=== PATIENT | female | born 2005 | race Caucasian/White ===

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

== ENCOUNTER 2025-04-04 10:47 | Emergency (ER) | payer BC ==
[2025-04-04 11:36] LABS: BASOPHILS ABSOLUTE AUTO 0.1 K/mm3 (0.0-0.2); BASOPHILS PERCENT AUTO 1.3 % (0.0-1.0); EOSINOPHILS ABSOLUTE AUTO 0.5 K/mm3 (0.0-0.4); EOSINOPHILS PERCENT AUTO 5.9 % (0.0-6.0); IMMATURE GRAN ABSOLUTE AUTO 0.01 K/mm3 (0.00-0.05); IMMATURE GRAN PERCENT AUTO 0.1 % (0.0-0.4); LYMPHOCYTES ABSOLUTE AUTO 2.1 K/mm3 (1.0-4.8); LYMPHOCYTES PERCENT AUTO 25.9 % (24.0-44.0); MEAN PLATELET VOLUME 10.3 fl (9.4-12.3); MONOCYTES ABSOLUTE AUTO 0.5 K/mm3 (0.0-0.8); MONOCYTES PERCENT AUTO 6.6 % (0.0-8.0); NEUTROPHILS ABSOLUTE AUTO 4.8 K/mm3 (1.8-7.7); NEUTROPHILS PERCENT AUTO 60.2 % (41.0-71.0); NRBC ABSOLUTE 0.00 (0.00-0.02); NRBC PERCENT 0.0 % (0.0-0.2); PLATELET COUNT,PLT 312 K/mm3 (150-400); RED BLOOD CELL COUNT 4.62 M/mm3 (4.10-5.30); WHITE BLOOD CELL COUNT,WBC 7.93 K/mm3 (3.9-11.3)
[2025-04-04 12:03] LABS: A/G RATIO 1.1 (1-2); ALANINE AMINOTRANSFERASE,ALT 16 U/L (14-59); ASPARTATE AMNIOTRANSFERASE,AST 17 U/L (15-37); BILIRUBIN TOTAL 0.5 mg/dL (0.2-1.0); BLOOD UREA NITROGEN,BUN 15 mg/dL (7-18); CARBON DIOXIDE,CO2 26 mEq/L (21-32); CHLORIDE,CL 106 mEq/L (98-107); CREATININE 0.7 mg/dL (0.55-1.02); EST CRCL DRUG DOSING (CG) 129.32 mL/min; ESTIMATED GFR 127 mL/min (>60); GLUCOSE RANDOM 94 mg/dL (70-99); POTASSIUM,K 4.1 mEq/L (3.5-5.1); PROTEIN TOTAL,TP 7.5 g/dl (6.4-8.2); SODIUM,NA 141 mEq/L (136-145)
[2025-04-04 12:04] LABS: HCG QUANTITATIVE < 1.0 mIU/mL
[2025-04-04 12:22] LABS: APPEARANCE,URINE CLEAR (Clear); GLUCOSE,URINE NEGATIVE (Negative); OCCULT BLOOD,URINE 3+ (Negative)
[2025-04-04 12:37] LABS: EPITHELIAL CELLS,URINE 0-5 /hpf (0-5)
[2025-04-04 13:49] VITALS: BP 121/90; PULSE 72
== END 2025-04-04 13:10 | disposition home or self-care (01) ==
LOC: JD.ED 10:47
DX: N92.4 Excessive bleeding in the premenopausal period (principal); Z91.048 Other nonmedicinal substance allergy status; Z79.899 Other long term (current) drug therapy
CPT/HCPCS: 36415; 76830; 76830-26; 80053; 81001; 84702; 85025; 86900; 86901; 87086; 99284